=== PATIENT | female | born 1965 | race Caucasian/White ===

== ENCOUNTER → 2017-07-03 | Day surgery (SDC) | payer OTHER ==
--- NOTE | 2017-07-04 16:07 | PATH ---
Surgical Pathology Report Patient Name: SIS WOLFF [facility]. Rec. #: [id number] /Age/Gender: 1965 (Age: 51) / F Account: [id number] Location: [facility] Taken: 07/03/2017 Received: 07/03/2017 Reported: 07/04/2017 Physicians: Marlene Gaines M.D. Specimen(s) Received A: LEFT BREAST 3:00, 12CM FN CORE BIOPSY B: LEFT AXILLARY LYMPH NODE CORE BIOPSY Clinical History None given Final Diagnosis A. BREAST, LEFT, 3:00, 12CM FN, CORE BIOPSY: INVASIVE DUCTAL CARCINOMA, MODERATELY DIFFERENTIATED, MEASURING 1.1 CM IN GREATEST DIMENSION IN THIS MATERIAL. (SEE NOTE) Note: The carcinoma is positive for E-Cadherin (performed at [facility]), which supports ductal phenotype. B. AXILLARY LYMPH NODE, LEFT, CORE BIOPSY: METASTATIC CARCINOMA EXTENSIVELY INVOLVING LYMPH NODE. Results of ER and MI studies performed on block A at [facility] are as follows: ER (clone [id number] mouse monoclonal antibody by [employer]): > 95 % nuclear staining with strong intensity (Positive). MI (clone16 mouse monoclonal antibody by [employer]): ~80 % nuclear staining with moderate to strong intensity (Positive). Results of Her2 and Ki67 studies will be reported separately in an addendum. Positive and negative controls (internal if applicable) show appropriate results. Formalin fixation and cold ischemic times are within current ASCO/CAP recommendations for ER, MI and Her2 testing. Electronically Signed Lexii Torrez M.D. Addendum Reported: 07/08/2017 Addendum Diagnosis Results of Her2 (IHC) & Ki-67 studies performed and interpreted on block A at [place], [place] ([id number]) are as follows: Her2 IHC (EP3 from [employer], formerly known as [id number], using [employer] Polymer Refine detection kit):1+ (Negative) Ki-67: approximately 15% (low proliferative index) Positive and negative controls (internal if applicable) show appropriate results. Lexii Torrez M.D. Gross Description A. Received in formalin, labeled "left breast biopsy 3:00, 12 cmfn," are 7 mccollum-yellow, cylindrical portions of fibroadipose tissue ranging from 0.4-1.3 cm. in length and averaging 0.1 cm. in diameter. The specimen is submitted in toto in one cassette. B. Received in formalin, labeled "left axillary lymph node," are 7 mccollum-yellow, cylindrical portions of fibroadipose tissue ranging from 0.3-1.5 cm. in length and averaging 0.2 cm. in diameter. The specimen is submitted in toto in one cassette. Time to formalin fixation: 2 minutes Total formalin fixation time: Approximately 9 hours. 07/03/201707/03/2017
== END | disposition home or self-care (01) ==
LOC: FRADUS-SUR 08:43
PROVIDERS: ATTEND Family Medicine
PROC: 0HBU3ZX Excision of Left Breast, Percutaneous Approach, Diagnostic (ICD-10-PCS; principal; 2017-07-03)
PROC: 07B63ZX Excision of Left Axillary Lymphatic, Percutaneous Approach, Diagnostic (ICD-10-PCS; 2017-07-03)
PROC: BH47ZZZ Ultrasonography of Upper Extremity (ICD-10-PCS; 2017-07-03)
DX: C50.812 Malignant neoplasm of overlapping sites of left female breast (principal); C77.3 Secondary and unspecified malignant neoplasm of axilla and upper limb lymph nodes; N63 Unspecified lump in breast
CPT/HCPCS: 19083; 19084; 38505; 76942; 87899; 88305-TC; 88342-TC; A4648; G0206-TC

== ENCOUNTER 2020-09-13 12:11 | Emergency (ER) | payer OTHER | END 2020-09-13 12:33 | disposition home or self-care (01) | LOC: JVIRT 12:11 | DX: Z11.59 Encounter for screening for other viral diseases (principal) | CPT/HCPCS: C9803; Q3014-GT; U0003 ==

== ENCOUNTER 2021-05-11 17:11 | Emergency (ER) | payer OTHER | END 2021-05-11 17:21 | disposition home or self-care (01) | LOC: JVIRT 17:11 | DX: Z11.52 Encounter for screening for COVID-19 (principal) | CPT/HCPCS: C9803; Q3014-GT; U0003; U0005 ==

== ENCOUNTER 2021-10-12 12:52 | Emergency (ER) | payer BC, OTHER | END 2021-10-12 13:00 | disposition home or self-care (01) | LOC: JVIRT 12:52 | DX: R05.9 Cough, unspecified (principal); Z20.822 Contact with and (suspected) exposure to COVID-19 | CPT/HCPCS: 87804; 87807; C9803; Q3014-GT; U0003; U0005 ==

== ENCOUNTER 2021-11-17 14:05 | Emergency (ER) | payer BC | END 2021-11-17 14:51 | disposition home or self-care (01) | LOC: JVIRT 14:05 | DX: Z20.822 Contact with and (suspected) exposure to COVID-19 (principal) | CPT/HCPCS: C9803; Q3014-GT; U0003; U0005 ==

== ENCOUNTER → 2022-03-28 | Emergency (ER) | payer BC | END | disposition home or self-care (01) | LOC: JVIRT 16:04 | DX: R53.83 Other fatigue (principal) | CPT/HCPCS: 0241U-QW; 99281-25 ==

== ENCOUNTER 2022-04-19 14:30 | Emergency (ER) | payer BC | END 2022-04-19 14:40 | disposition home or self-care (01) | LOC: JVIRT 14:30 | DX: Z20.822 Contact with and (suspected) exposure to COVID-19 (principal) | CPT/HCPCS: 0241U-QW; G2251-GT ==

== ENCOUNTER 2022-04-30 12:19 | Emergency (ER) | payer BC ==
[2022-04-30 12:25] VITALS: BMI 35.4
[2022-04-30] MEDS ORDERED: BEBTELOVIMAB (EUA) 175 MG/2 ML VIAL IVPUSH ONE (12:26)
[2022-04-30] MEDS ORDERED: SODIUM CHLORIDE 1,000 ML IV STA (12:30)
[2022-04-30] MEDS ORDERED: KETOROLAC TROMETHAMINE 30 MG/1 ML VIAL IVPUSH ONE (12:30)
[2022-04-30 13:45] VITALS: BP 136/83; TEMP 97.6
[2022-04-30 15:35] VITALS: PULSE 81
== END 2022-04-30 15:00 | disposition home or self-care (01) ==
LOC: JERFT 12:19
PROC: 3E0333Z Introduction of Anti-inflammatory into Peripheral Vein, Percutaneous Approach (ICD-10-PCS; principal; 2022-04-30)
PROC: 3E03329 Introduction of Other Anti-infective into Peripheral Vein, Percutaneous Approach (ICD-10-PCS; 2022-04-30)
PROC: 3E0337Z Introduction of Electrolytic and Water Balance Substance into Peripheral Vein, Percutaneous Approach (ICD-10-PCS; 2022-04-30)
DX: U07.1 COVID-19 (principal)
CPT/HCPCS: 0241U-QW; 96361; 96374; 96375; 99284-25; M0222; Q0222

== ENCOUNTER 2023-01-09 10:38 | Emergency (ER) | payer BC ==
[2023-01-09] MEDS ORDERED: ONDANSETRON 4 MG/2 ML VIAL IVPUSH ONE (10:47)
[2023-01-09] MEDS ORDERED: LACTATED RINGERS SOLUTION 1,000 ML/1,000 ML INFUS.BAG IV STA ×2 (10:47→14:27)
[2023-01-09] MEDS ORDERED: HYDROmorphone HCl 2 MG/ML VIAL IVPUSH ONE (10:48)
[2023-01-09] MEDS ORDERED: FAMOTIDINE 20 MG/50 ML IVPB 20 MG/50 ML MG IVPB ONE (10:48)
[2023-01-09] MEDS ORDERED: ONDANSETRON 4 MG/2 ML VIAL ONE (11:02)
[2023-01-09] MEDS ORDERED: ACETAMINOPHEN 1000 MG/100 ML BAG IVPB ONE (11:03)
[2023-01-09] MEDS ORDERED: FAMOTIDINE 10 MG/ML VIAL IVPB ONE (11:03)
[2023-01-09] MEDS ORDERED: ACETAMINOPHEN INJECTION 100 ML IVPB ONE (11:04)
[2023-01-09 11:11] VITALS: RESP 20; BMI 36.6
[2023-01-09] MEDS ORDERED: HYDROmorphone HCl 2 MG/ML VIAL ONE (11:40)
[2023-01-09 12:55] LABS: HEMATOCRIT 33.8 % (32.4-45.2); MCH 36.1 pg (25.7-33.7); MCHC 35.6 g/dl (32.0-36.0); MEAN CELL VOLUME 101.4 fl (80-96); PLATELET COUNT 214 10^3/uL (134-434); RBC 3.33 M/mm3 (3.60-5.2); RDW 14.3 % (11.6-15.6); WHITE BLOOD COUNT 7.4 K/mm3 (4.0-10.0)
[2023-01-09 13:00] LABS: BLOOD UREA NITROGEN 9.3 mg/dL (7-18)
[2023-01-09 13:01] LABS: ALBUMIN 3.8 g/dl (3.4-5.0)
[2023-01-09 13:03] LABS: CREATININE 0.8 mg/dL (0.55-1.3)
[2023-01-09 13:05] LABS: BILIRUBIN,TOTAL 0.4 mg/dL (0.2-1); TOT PROT 7.5 g/dl (6.4-8.2)
[2023-01-09 14:00] LABS: ANISOCYTOSIS 0; MACROCYTOSIS 0
[2023-01-09 14:23] VITALS: BP 127/68; PULSE 99; TEMP 99.5
[2023-01-09 14:42] LABS: EPI CELLS 14 /uL (0-25.1); HYALINE CASTS 0 /uL (0-3.1); URINE APPEARANCE CLEAR; URINE BACTERIA 45 /uL (0-1359); URINE BILIRUBIN NEGATIVE (NEGATIVE); URINE COLOR YELLOW; URINE GLUCOSE (UA) NEGATIVE (NEGATIVE); URINE KETONE NEGATIVE (NEGATIVE); URINE LEUK ESTERASE TRACE (NEGATIVE); URINE NITRITE NEGATIVE (NEGATIVE); URINE PROTEIN NEGATIVE (NEGATIVE); URINE RBC 83 /uL (0-23.9); URINE UROBILINOGEN 0.2 mg/dL (0.2-1.0); URINE WBC 25 /uL (0-25.8)
[2023-01-09] MEDS ORDERED: KETOROLAC TROMETHAMINE 15 MG/ML VIAL IVPUSH ONE (15:21)
[2023-01-09] MEDS ORDERED: KETOROLAC TROMETHAMINE 15 MG/ML VIAL ONE (15:23)
== END 2023-01-09 16:34 | disposition home or self-care (01) ==
LOC: JER 10:38
PROC: 3E033GC Introduction of Other Therapeutic Substance into Peripheral Vein, Percutaneous Approach (ICD-10-PCS; principal; 2023-01-09)
PROC: 3E033GC Introduction of Other Therapeutic Substance into Peripheral Vein, Percutaneous Approach (ICD-10-PCS; 2023-01-09)
PROC: 3E033GC Introduction of Other Therapeutic Substance into Peripheral Vein, Percutaneous Approach (ICD-10-PCS; 2023-01-09)
PROC: 3E033GC Introduction of Other Therapeutic Substance into Peripheral Vein, Percutaneous Approach (ICD-10-PCS; 2023-01-09)
PROC: 3E0337Z Introduction of Electrolytic and Water Balance Substance into Peripheral Vein, Percutaneous Approach (ICD-10-PCS; 2023-01-09)
DX: R53.83 Other fatigue (principal); J01.10 Acute frontal sinusitis, unspecified; M79.10 Myalgia, unspecified site; R19.7 Diarrhea, unspecified; R11.2 Nausea with vomiting, unspecified; Z20.822 Contact with and (suspected) exposure to COVID-19
CPT/HCPCS: 0241U-QW; 36415; 71045-TC-FY; 72125-TC; 80053; 81003; 83690; 83735; 85025; 87086; 99285-25